=== PATIENT | female | born 1970 ===

== ENCOUNTER 2017-11-05 15:29 | Outpatient (CLI) | payer BC | END 2017-11-05 15:30 | disposition home or self-care (01) | LOC: BICMAMMO 15:29 | PROVIDERS: ATTEND Family Medicine | DX: Z12.31 Encounter for screening mammogram for malignant neoplasm of breast (principal); D25.9 Leiomyoma of uterus, unspecified; N64.89 Other specified disorders of breast | CPT/HCPCS: 76856; 77063; 77067 ==

== ENCOUNTER 2018-01-01 16:11 | Outpatient (CLI) | payer BC | END 2018-01-01 16:12 | disposition home or self-care (01) | LOC: BICRAD 16:11 | PROVIDERS: ATTEND Chiropractor | DX: M54.42 Lumbago with sciatica, left side (principal); M46.1 Sacroiliitis, not elsewhere classified; M62.830 Muscle spasm of back; I25.10 Atherosclerotic heart disease of native coronary artery without angina pectoris | CPT/HCPCS: 72110 ==

== ENCOUNTER 2018-01-10 13:47 | Outpatient (CLI) | payer BC | END 2018-01-10 13:48 | disposition home or self-care (01) | LOC: BICMAMMO 13:47 | PROVIDERS: ATTEND Family Medicine | DX: R92.8 Other abnormal and inconclusive findings on diagnostic imaging of breast (principal); N63.20 Unspecified lump in the left breast, unspecified quadrant | CPT/HCPCS: G0279 ==